=== PATIENT | female | born 1965 | race Caucasian/White ===

== ENCOUNTER 2016-12-06 09:05 | Emergency (ER) | payer OTHER ==
[~2016-12-06] VITALS: Ht 162.6 cm; Wt 90.7 kg
[2016-12-06 09:10] VITALS: BP 155/72
--- NOTE | 2016-12-06 09:52 | RAD ---
Exam: Left wrist radiograph 12/06/2016 at 0924 hours Indication: Left wrist pain Comparison: None available Technique: 3 views of the left wrist are provided. Findings: There is no acute fracture or dislocation. There is increased sclerosis along the ulnar aspect of the lunate. No joint space narrowing. No soft tissue swelling. No osseous erosion or soft tissue gas. Bone mineralization is within normal limits. Impression: No acute fracture or dislocation. Increased sclerosis along the lateral aspect of the lunate may represent subchondral cystic change from degenerative changes.
--- NOTE | 2016-12-06 10:11 | PHYS DOC ---
General Chief Complaint: WRIST PAIN Stated Complaint: LEFT WRIST PAIN Time Seen by MD: 09:11 Source: patient Exam Limitations: no limitations Problems: History of Present Illness Initial Comments Patient is a 51-year-old female who comes to emergency department with a Worker' s Compensation injury to her left wrist. 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 While at work today lifting boxes she felt a pop at her medial left wrist. She tried to keep working through it but as she did so it became more painful. Pain is located at the medial aspect of the left wrist with some radiation proximally. She denies numbness tingling weakness or radiating symptoms, she is refusing pain medications but was sent to the emergency Department from work as she didn't think she could get through the rest of the day. She denies any other injuries and has no discomfort at rest. She's had no pre-arrival treatment and denies any other complaints. Onset: just prior to arrival Severity: moderate Pain/Injury Location: left wrist Method of Injury: other Modifying Factors: worse with jarring, worse with movement, improves with rest Past Medical History Medical History: other (rheumatoid arthritis, diabetes, hypertension, hypothyroidism) Surgical History: noncontributory (hysterectomy, cholecystectomy, section, tonsillectomy) Social History Smoker: non-smoker Alcohol: none Drugs: none Review of Systems Constitutional: denies chills, denies fever Respiratory: denies cough, denies shortness of breath Cardiovascular: denies chest pain, denies palpitations Gastrointestinal: denies nausea, denies vomiting Musculoskeletal: see HPI Psychiatric/Neurological: see HPI Physical Exam General Appearance: no apparent distress Neck: non-tender, supple Cardiovascular/Respiratory: normal peripheral pulses, no respiratory distress Wrist: no evidence of injury (slightly decreased range of motion with flexion and extension but overall is able to move pretty well. No swelling ecchymosis abrasions lacerations or other skin changes are noted. She has tenderness in the soft tissues and carpals at the medial wrist no palpable bony deformity the extremity is neurovascularly intact there is no evidence of tendon damage.) Neurologic/Tendon: normal sensation, normal motor functions, normal tendon functions, responds to pain, no evidence tendon injury Psychiatric: alert, oriented x 3 Skin: normal color, warm/dry Orders, Labs, Meds Left wrist: Degenerative changes no acute osseous abnormality. Interpreted by Dr. Forde. Wrist splint placed patient neurovascularly intact after placement. I discussed the treatment plan patient continues to refuse pain medications. She brought a work until Thursday at which time she can follow-up with the doctor for recheck. She expressed agreement and understanding and will follow-up with your employer regarding Worker's Compensation. Departure Time of Disposition: 10:10 Disposition: HOME, SELF-CARE Diagnosis: worker's compensation left wrist sprain Condition: GOOD Patient Instructions: JOEL - Routine Care for Injuries, [id number], Wrist Splint, [id number], Wrist Sprain with [facility] Additional Instructions: JOEL see handout. No use of left wrist and off work until cleared by your doctor on Thursday. Wear splint on the left wrist as needed. [id number] Tylenol and ibuprofen as needed for discomfort. Follow-up with your doctor on Thursday for recheck and further activity restriction modifications. Return to ED with new or changing symptoms JOY FORDE DO Dec 06, 2016 10:11
== END 2016-12-06 10:23 | disposition home or self-care (01) ==
LOC: ER 09:05
DX: S63.502A Unspecified sprain of left wrist, initial encounter (principal); M19.90 Unspecified osteoarthritis, unspecified site; E11.9 Type 2 diabetes mellitus without complications; I10 Essential (primary) hypertension; E03.9 Hypothyroidism, unspecified; X58.XXXA Exposure to other specified factors, initial encounter; Y93.89 Activity, other specified; Y99.0 Civilian activity done for income or pay; Y92.89 Other specified places as the place of occurrence of the external cause
CPT/HCPCS: 29125; 73110; 99284-25